=== PATIENT | male | born 1975 | race Caucasian/White ===

== ENCOUNTER → 2020-08-27 | Outpatient (CLI) | payer BC | LOC: LAB 07:52 | PROVIDERS: ATTEND Orthopaedic Surgery Sports Medicine | DX: Z01.812 Encounter for preprocedural laboratory examination (principal); Z20.828 Contact with and (suspected) exposure to other viral communicable diseases ==

== ENCOUNTER 2020-09-10 13:15 | Day surgery (SDC) | payer BC ==
[~2020-09-10] VITALS: Ht 180.3 cm; Wt 101.2 kg
[~2020-09-10 13:15] MED LIST: ATORVASTATIN CA20 MG PO; FINASTERIDE1 MG PO; OMEPRAZOLE 20 M20 M1 PO; PROAIR HFA8.5 GM INH
[2020-09-10 13:41] VITALS: BP 121/79
[2020-09-10 18:25] VITALS: BP 121/79
--- NOTE | 2020-09-11 07:25 | O ---
[address] [address] OPERATIVE REPORT Name: OCTAVIO CORREIA Room #: DEP [facility].#: [id number] Admission: 09/10/20 Attend Phys: Javier Keen MD Discharge: 09/10/20 Date of : 73 Report #: [id number] THIS REPORT FOR: cc: Gurpreet Berger MD NO FAMILY PHYSICIAN or PCP Javier Keen MD ~ DATE OF SERVICE: 09/10/2020 SERVICE: Orthopedics. FACILITY: [facility]. SURGEON: Javier Keen MD INTAKE CLINICIAN: Keyana Field. INDICATION FOR INTAKE CLINICIAN: Extremity positioning, suture management, arthroscope management assistance with the repair. PREOPERATIVE DIAGNOSES: 1. Right hip pain. 2. Right hip labral tear. 3. Right hip femoroacetabular impingement. 4. Right hip chondromalacia. POSTOPERATIVE DIAGNOSES: 1. Right hip pain. 2. Right hip labral tear. 3. Right hip femoroacetabular impingement. 4. Right hip chondromalacia. PROCEDURES: 1. Right hip arthroscopic labral repair. 2. Right hip arthroscopic Cam osteochondroplasty. 3. Right hip arthroscopic extraarticular subspine acetabuloplasty. 4. Right hip arthroscopic acetabular chondroplasty. COMPLICATIONS: None. DRAINS: None. SPECIMENS: None. ANESTHESIA: General with regional. [address] [address] OPERATIVE REPORT Name: OCTAVIO CORREIA Room #: DEP [facility] Kacy#: [id number] Admission: 09/10/20 Attend Phys: Javier Keen MD Discharge: 09/10/20 Date of : 73 Report #: [id number] FINDINGS: 1. Labral repair with [place] CinchLock suture anchor x 2. 2. Grade 3 chondromalacia of the acetabulum, approximately 20% of the acetabulum volume. A standard anterior and anterolaterally secondary to the Cam impingement. This was all partial-thickness and there were no full-thickness grade 4 lesions noted. 3. Large Cam deformity treated with Cam osteoplasty. 4. Prominent anterior inferior iliac spine on the narrow portion just inferior to the AIIS causing subspine impingement requiring additional dissection and a surgical decompression with the bur. 5. Capsulotomy repaired with #2-0 Vicryl x 4. HISTORY: The patient is a 44-year-old young man with history of persistent progressive worsening right hip pain for many months. He tried conservative measures and have failed greater than 6 months of management including rest, activity modifications, physical therapy, oral medicines, modality. He had positive pain response with intraarticular injection. X-rays were consistent with femoroacetabular impingement with an obvious Cam deformity with an alpha angle of approximately 70 degrees. Tonnis grade = 1. Joint space is maintained. Growth plates are closed. The MRI showed a full-thickness labral tear as well as some chondromalacia of the anterior rim, but overall no signs of osteoarthritis. He had physical examination consistent with MAGEN with impingement sign. He had pain and hip pain affecting his activities of daily living. He was indicated for surgical treatment after failed conservative measures. Risks, benefits, alternatives, and indication of surgery discussed with him in detail. Risks include but not limited to pain, bleeding, infection, injury nerves or blood vessels, persistent pain despite surgical intervention, failure of any repairs, progression of preexisting chondral injury, stiffness, need for further surgery as well as complications related to anesthesia such as stroke, heart attack, pulmonary complications, thromboembolic disease and . Despite the risks, he wished to proceed. PROCEDURE IN DETAIL: After the right lower extremity was correctly identified in the preoperative holding area as the operative extremity, the patient was taken to the operating room and general anesthesia was induced without complications and was padded appropriately. Prophylactic antibiotics were administered at appropriate time. C-arm was brought in to identify the extended Cam deformity, which is extended from the [address] the way to the 80-degree position and had a maximum alpha angle of approximately 70-75 degrees. Right hip was prepped and draped in standard sterile fashion. Timeout procedure performed. Traction was applied, standard anterolateral viewing portal was established followed by mid anterior working portal. Diagnostic arthroscopy revealed the above findings. There was synovitis present and capsular erythema, which will [address] [address] OPERATIVE REPORT Name: OCTAVIO CORREIA Room #: DEP [facility] M.R.#: [id number] Admission: 09/10/20 Attend Phys: Javier Keen MD Discharge: 09/10/20 Date of : 73 Report #: [id number] be the indication for continuous passive motion machine usage postoperatively as this can reduce the risk of adhesions and scarring which are known reasons for reoperation in this patient population. The transverse capsulotomy was performed and diagnostic arthroscopy revealed the above acetabular findings. Shaver was used to perform a chondroplasty, which was completed after the labral repair, capsule reflected off the dorsal side of the labrum to allow visualization of the acetabular rim with the bur was used to gently abrade the acetabular rim to create a fresh bleeding surface for labral refixation. The dissection was then carried more proximally and superiorly with some additional capsular dissection to allow exposure of the subspine region, which was prominent and causing focal area of impingement that is corresponding with the location of the labral tear. The bur was used to perform a subspine decompression in standard fashion, resecting the subspine region. After this was completed, the bony debris was lavaged and then labral repair was performed with [place] CinchLock suture anchor x 2, then the shaver was used to complete the chondroplasty. Traction was let down and attention turned towards peripheral compartment. The transverse capsulotomy was extended down the neck in a fashion to allow access to the entire Cam deformity. The bur was used to perform a Cam osteoplasty in standard fashion and removed the instruments, brought C-arm in and identified some additional bone over the distal shoulder that needed to be resected and placed the instruments back into the hip and completed the Cam osteoplasty. The bony debris was then lavaged out of the hip. The instruments were removed. C-arm was brought in to assess the resection and felt that satisfactory decompression had been completed, instruments were placed back into the hip. Final debridement was completed and then the T-shaped capsulotomy was closed with a total of four #2 Vicryl sutures. Instruments were removed. Portal sites were closed. Sterile dressing applied. The patient was awakened from anesthesia and taken to recovery room in stable condition. No complications. All counts were correct. <ELECTRONICALLY SIGNED> By: Javier Keen MD 09/11/20 0725 [id number] Javier Keen MD /nt
== END 2020-09-10 19:12 | disposition home or self-care (01) ==
LOC: TBA 13:15 → OR 13:15
PROVIDERS: ATTEND Orthopaedic Surgery Sports Medicine
DX: M25.551 Pain in right hip (principal); S73.101A Unspecified sprain of right hip, initial encounter; M25.851 Other specified joint disorders, right hip; M94.251 Chondromalacia, right hip; E78.5 Hyperlipidemia, unspecified; N40.0 Benign prostatic hyperplasia without lower urinary tract symptoms; K21.9 Gastro-esophageal reflux disease without esophagitis; Z98.890 Other specified postprocedural states; Z79.899 Other long term (current) drug therapy; X58.XXXA Exposure to other specified factors, initial encounter; Y93.89 Activity, other specified; Y92.89 Other specified places as the place of occurrence of the external cause; Y99.8 Other external cause status
CPT/HCPCS: 50010; 50101; 50386; 51320; 51538; 52001; 52282; 52304; 56524; 56527; 57092; 57103; 58273; 58274; 62110; 62900; 64039; 70005